=== PATIENT | female | born 1975 | race Native Hawaiian/Other Pacific Islander ===

== ENCOUNTER 2021-05-12 11:12 | Outpatient (CLI) | payer BC | END 2021-05-12 22:37 | disposition home or self-care (01) | LOC: US 11:12 | PROVIDERS: ATTEND Internal Medicine | DX: M79.604 Pain in right leg (principal) ==

== ENCOUNTER 2022-06-01 13:29 | Outpatient (CLI) | payer BC | END 2022-06-01 19:20 | disposition home or self-care (01) | LOC: MAMMO 13:29 | PROVIDERS: ATTEND Internal Medicine | DX: Z12.31 Encounter for screening mammogram for malignant neoplasm of breast (principal) ==

== ENCOUNTER 2022-07-25 10:29 | Outpatient (CLI) | payer BC | END 2022-07-25 19:03 | disposition home or self-care (01) | LOC: MAMMO 10:29 | PROVIDERS: ATTEND Internal Medicine | DX: N64.89 Other specified disorders of breast (principal) ==